=== PATIENT | male | born 1960 | race Caucasian/White ===

== ENCOUNTER 2020-02-05 11:50 | Emergency (ER) | payer OTHER, MEDICAID, SELFPAY ==
[2020-02-05 11:50] VITALS: BP 117/96; PULSE 108; RESP 15; TEMP 36.9; O2SAT 96; BMI 26.3
--- NOTE | 2020-02-05 12:10 | ED_ITS ---
HPI - URI/Sore Throat <SARA Edmond-BC - Last Filed: 02/05/20 15:46> General Chief Complaint: Upper Respiratory Symptoms Stated Complaint: Cough/Runny Nose/ Shivers Time Seen by Provider: 02/05/20 11:52 Source: patient Mode of arrival: Ambulatory Limitations: no limitations History of Present Illness HPI Narrative: The patient is a 59-year-old male non drug user with history of pneumonia who presents for chief complaint of a cough over the past few days. He also complains of runny nose. States he is coughing up sputum of different colors. He denies any fevers but complains of chills and muscle aches. He denies any abdominal pain, nausea vomiting or diarrhea. He complains of slight sore throat, no ear pain. He states he gets pneumonia every year in this feels consistent. He has not taken anything to feel better as he does not like to ?take medications. 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 Related Data Home Medications Medication Instructions Recorded Confirmed omeprazole 20 mg PO QDAY #0 10/21/16 Previous Rx's Medication Instructions Recorded azithromycin [Zithromax] 250 mg PO SEE INSTRUCTIONS #6 tab 12/07/17 loratadine [Claritin] 10 mg PO QDAY #30 tab 12/07/17 Allergies Allergy/AdvReac Type Severity Reaction Status Date / Time Penicillins [PENICILLINS] Allergy Unknown Verified 02/05/20 11:56 BEE STINGS Allergy Unknown Uncoded 02/27/18 13:00 Review of Systems <MITCH Edmond - Last Filed: 02/05/20 15:46> Review of Systems Narrative: GENERAL: See HPI HEENT: Denies sinus pain, ear pain, sore throat, difficulty swallowing, dizziness. RESPIRATORY: See HPI CARDIOVASCULAR: Denies chest pain, palpitations, orthopnea, edema, GASTROINTESTINAL: Denies nausea, vomiting, abdominal pain, diarrhea, constipation, melena. : Denies dysuria, frequency, incontinence, hematuria, urinary retention. MUSCULOSKELETAL: denies weakness, joint pain, or bony pain SKIN: Denies rash, skin lesions, or other NEUROLOGIC: Denies weakness, headache, numbness, change in speech, confusion, seizures, incoordination. PSYCHIATRIC: No concerning psychosocial issues. 12 point review of systems is negative except for those stated above Patient History <Samia MckeonZHANG - Last Filed: 02/05/20 15:46> Social History Smoking Status: Unknown if ever smoked Smoking Status: Unknown if ever smoked alcohol intake frequency: holidays/special occasions only Substance Use Type: does not use Exam <Samia MckeonZHANG - Last Filed: 02/05/20 15:46> Narrative Exam Narrative: GENERAL: This is a well-nourished, well-developed patient, in no acute distress HEAD: Atraumatic. Normocephalic. No temporal or scalp tenderness. EYES: Pupils equal round and reactive. Extraocular motions intact. No scleral icterus. No injection or drainage. ENT: Nose without bleeding, purulent drainage or septal hematoma. Throat without erythema, tonsillar hypertrophy or exudate. Uvula midline. Airway patent. NECK: Trachea midline. No JVD or lymphadenopathy. Supple, nontender, no meningeal signs. CARDIOVASCULAR: Regular rate and rhythm without murmurs, gallops, or rubs. RESPIRATORY: Clear to auscultation. Breath sounds equal bilaterally. No wheezes, rales, or rhonchi. No cough. No increased respiratory effort. No accessory muscle use. GASTROINTESTINAL: Abdomen soft, non-tender, nondistended. No hepato- splenomegaly, or palpable masses. No guarding. EXTREMITIES: No clubbing, cyanosis, or edema. No joint tenderness, effusion, or edema noted. BACK: Nontender without deformity or crepitance. No flank tenderness. NEURO: AOx3. SKIN: No rash or erythema on visible skin Initial Vital Signs Initial Vital Signs: Vital Signs Temperature 98.5 F 02/05/20 11:50 Pulse Rate 108 H 02/05/20 11:50 Respiratory Rate 15 02/05/20 11:50 Blood Pressure 117/96 H 02/05/20 11:50 Pulse Oximetry 96 02/05/20 11:50 <Desmond Vicente DO - Last Filed: 02/05/20 16:40> Initial Vital Signs Initial Vital Signs: Vital Signs Temperature 98.5 F 02/05/20 11:50 Pulse Rate 108 H 02/05/20 11:50 Respiratory Rate 15 02/05/20 11:50 Blood Pressure 117/96 H 02/05/20 11:50 Pulse Oximetry 96 02/05/20 11:50 Course <Samia MITCH Mckeon - Last Filed: 02/05/20 15:46> Orders Ordered: ED Orders 02/05/20 12:15 Respiratory Panel (Film Array) Stat Vital Signs Vital signs: Vital Signs - 8 hr 02/05/20 11:50 Temperature 98.5 F Pulse Rate 108 H Respiratory Rate 15 Blood Pressure 117/96 H Pulse Oximetry 96 <Desmond Vicente DO - Last Filed: 02/05/20 16:40> Orders Ordered: ED Orders 02/05/20 12:15 Respiratory Panel (Film Array) Stat Vital Signs Vital signs: Vital Signs - 8 hr 02/05/20 11:50 Temperature 98.5 F Pulse Rate 108 H Respiratory Rate 15 Blood Pressure 117/96 H Pulse Oximetry 96 MDM - URI/Sore Throat <MITCH Edmond - Last Filed: 02/05/20 15:46> Lab Data Labs: Lab Results 02/05/20 Range/Units 12:15 Chlamy pneumoniae PCR Not detected (Not Detect) Adenovirus (PCR) Not detected (Not Detect) B.parapertussis DNA PCR Not detected (Not Detect) Coronavirus OC43 (PCR) Not detected (Not Detect) Coronavirus HKU1 (PCR) Not detected (Not Detect) Coronavirus 229E (PCR) Not detected (Not Detect) Coronavirus NL63 (PCR) Not detected (Not Detect) Human Metapneumovir PCR Not detected (Not Detect) Influenza Type A (PCR) Not detected (Not Detect) Influenza Type B (PCR) Detected H (Not Detect) M. 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 Given that the patient does work in [employer], he is at high risk. Given his symptoms and risk factors, I agreed to tested for rea virus. Patient does state understanding that he is supposed to self cord teen, act as though he is sick until and test result which she states will take about a week. He also is okay with having a respiratory panel done. He declines a chest x-ray and declines any medications. I discussed at length the importance of following up with primary care provider, self quarantine eating until results come back. Encouraged hand hygiene and covering of cough. Patient has no questions or concerns upon discharge and states understanding of return precautions as well as follow-up care. After the patient was discharged, called and spoke with him regarding his positive influenza B. reinforced quarantined, washing hands etcetera. Patient appreciative of call, has no questions or concerns. <Desmond Vicente, - Last Filed: 02/05/20 16:40> Lab Data Labs: Lab Results 02/05/20 Range/Units 12:15 Chlamy pneumoniae PCR Not detected (Not Detect) Adenovirus (PCR) Not detected (Not Detect) B.parapertussis DNA PCR Not detected (Not Detect) Coronavirus OC43 (PCR) Not detected (Not Detect) Coronavirus HKU1 (PCR) Not detected (Not Detect) Coronavirus 229E (PCR) Not detected (Not Detect) Coronavirus NL63 (PCR) Not detected (Not Detect) Human Metapneumovir PCR Not detected (Not Detect) Influenza Type A (PCR) Not detected (Not Detect) Influenza Type B (PCR) Detected H (Not Detect) M. pneumoniae (PCR) Not detected (Not Detect) Parainfluenza 1 (PCR) Not detected (Not Detect) Parainfluenza 2 (PCR) Not detected (Not Detect) Parainfluenza 3 (PCR) Not detected (Not Detect) Parainfluenza 4 (PCR) Not detected (Not Detect) RSV (PCR) Not detected (Not Detect) Entero/Rhino (PCR) Not detected (Not Detect) Discharge Plan Departure Patient Disposition: Home Clinical Impression: Cough Upper respiratory infection Qualifiers: URI type: unspecified viral URI Qualified Code(s): J06.9 - Acute upper respiratory infection, unspecified Discharge Date/Time: 02/05/20 12:48 Instructions: DI for Cough -- Adult, DI for Viral Upper Respiratory Infection -- Adult Activity Restrictions/Additional Instructions: Thank you for trusting us with your care today. We have a respiratory panel pending. I will call you at [phone] when these results come back. The CoVid19 testing takes approximately one week to come back. We will call you when these results come in. Until then, please act as though your sick and self quarantine. Please wash your hands, cover your cough and stay home. Please come back to the emergency department for any acute concerns such as significant shortness of breath, chest pain, concerns of heart attack stroke etcetera Prescriptions: No Action omeprazole 20 MG capsule,delayed release(DR/EC) 20 mg PO QDAY Qty: 0 RF: 0 azithromycin [Zithromax] 250 MG tablet 250 mg PO SEE INSTRUCTIONS Qty: 6 RF: 0 loratadine [Claritin] 10 MG tablet 10 mg PO QDAY Qty: 30 RF: 0 Referrals: Lg Grimaldo [Primary Care Provider] - Stand Alone Forms: Work Release Note ED Sign-out <ZHANG Edmond - Last Filed: 02/05/20 15:46> Cosign ED Attending Consuelo Attestation: I was immediately available in the department for consultation. This documentation has been reviewed and I agree with assessment and plan. Supervised by ZHANG Edmond <Desmond Vicente DO - Last Filed: 02/05/20 16:40> Cosign ED Attending Consuelo Attestation: Dr Vicente Co-Sign Statement: I was available for consultation during this patient's emergency department visit. This chart is signed by myself for administrative purposes only. I did not have direct contact with this patient during this visit. They were seen independently by the APC.
[2020-02-05 15:20] LABS: Adenovirus Not Detected (Not Detect); Coronavirus 229E Not Detected (Not Detect); Coronavirus HKU1 Not Detected (Not Detect); Coronavirus NL 63 Not Detected (Not Detect); Coronavirus OC43 Not Detected (Not Detect); Human Metapneumovirus Not Detected (Not Detect); Human Rhinovirus/Enterovirus Not Detected (Not Detect); Influenza A Not Detected (Not Detect); Influenza B Detected (Not Detect); Parainfluenza Virus 1 Not Detected (Not Detect); Parainfluenza Virus 2 Not Detected (Not Detect); Parainfluenza Virus 3 Not Detected (Not Detect); Parainfluenza Virus 4 Not Detected (Not Detect); Respiratory Syncytial Virus Not Detected (Not Detect)
[2020-02-05 15:21] LABS: Bordetella pertussis Not Detected (Not Detect); Chlamydophila pneumoniae Not Detected (Not Detect); Mycoplasma pneumoniae Not Detected (Not Detect)
[2020-02-07 15:54] LABS: COVID19 Sendout Not Detected (Not Detected)
== END 2020-02-05 12:48 | disposition home or self-care (01) ==
PROVIDERS: Emergency Provider Nurse Practitioner Family; PCP Student in an Organized Health Care Education/Training Program
DX: R05 Cough (principal); R60.9 Edema, unspecified
CPT/HCPCS: 87633; 99281; 99282

== ENCOUNTER 2025-10-24 11:18 | Emergency (ER) | payer OTHER, MEDICAID, SELFPAY ==
[2025-10-24] VITALS (7 sets, daily range): BP systolic 123–152; BP diastolic 72–84; PULSE 74–83; RESP 11–20; O2SAT 96–99; BMI 25.0
--- NOTE | 2025-10-24 11:37 | EKG_ITS ---
[address] [address] [address] [address] Test Date: 2025-10-24 Pat Name: Ray Edwards Department: Room: Gender: Male Director Of Informatics: JAMEL : 1960 Requested By: Order Number: [id number] Reading MD: Tacho Hanna Measurements Intervals [place] Rate: 79 P: 29 MI: 140 QRS: 47 QRSD: 80 T: 52 QT: 384 QTc: 440 Interpretive Statements Normal sinus rhythm Electronically Signed On 10-24-2025 14:41:16 PST by Tacho Hanna
--- NOTE | 2025-10-24 11:37 | DI.RAD.S_ITS ---
PROCEDURE: XR CHEST 1V INDICATIONS: Chest Pain TECHNIQUE: One view of the chest was acquired. COMPARISON: [facility], , CHEST 2 VIEW, 12/07/2017, 8:53. FINDINGS: Surgical changes and devices: None. Lungs and pleura: Lungs are clear. No pleural effusions or pneumothorax. Mediastinum: Mediastinal contours appear normal. Heart size is normal. Bones and chest wall: No suspicious bony lesions. Overlying soft tissues appear unremarkable. IMPRESSION: No acute pulmonary process. Dictated by: Chandrika Wu M.D. on 10/24/2025 at 12:08 Approved by: Chandrika Wu M.D. on 10/24/2025 at 12:08
--- NOTE | 2025-10-24 11:53 | ED.CHESTPAIN ---
HPI - Chest Pain General Chief Complaint: Chest Pain Stated Complaint: Profuse sweating, lump mid-chest, vomitting Time Seen by Provider: 10/24/25 12:11 Source: patient Mode of arrival: Ambulatory Limitations: no limitations History of Present Illness HPI narrative: This is a 64-year-old white male who presents with several days of substernal chest pain described as pressure and burning it is nonradiating accompanied by nausea and diaphoresis. There is no cough hemoptysis shortness of breath. Patient states she does have a history of GERD. Patient states the pain is not provoked intermittent and self-limited. Related Data Home Medications ?Medication ?Instructions ?Recorded ?Confirmed omeprazole 20 mg capsule,delayed 20 mg PO QDAY ##0 10/21/16 release Previous Rx's ?Medication ?Instructions ?Recorded azithromycin 250 mg tablet 250 mg PO SEE INSTRUCTIONS #6 tabs 12/07/17 (Zithromax) loratadine 10 mg tablet (Claritin) 10 mg PO QDAY #30 tabs 12/07/17 prochlorperazine maleate 10 mg 10 mg PO TID PRN nausea and 10/24/25 tablet vomiting #14 tabs Allergies Allergy/AdvReac Type Severity Reaction Status Date / Time Penicillins (PENICILLINS) Allergy Unknown Verified 02/05/20 11:56 Iodinated Contrast Media AdvReac Vomiting Verified 10/24/25 12:36 BEE STINGS Allergy Unknown Uncoded 02/27/18 13:00 Review of Systems Review of Systems Narrative: GENERAL: Denies chills, fatigue, malaise, fever, sweats. HEENT: Denies sinus pain, ear pain, sore throat, difficulty swallowing, dizziness. RESPIRATORY: Denies dyspnea, cough, wheezing, hemoptysis, sputum. CARDIOVASCULAR: See HPI GASTROINTESTINAL: See HPI : Denies dysuria, frequency, incontinence, hematuria, urinary retention. MUSCULOSKELETAL: denies weakness, joint pain, or bony pain SKIN: Denies rash, skin lesions, or other NEUROLOGIC: Denies weakness, headache, numbness, change in speech, confusion, seizures, incoordination. PSYCHIATRIC: No concerning psychosocial issues. 12 point review of systems is negative except for those stated above Patient History Social History Smoking Status: Never smoker Smoking Status: Never smoker alcohol intake frequency: holidays/special occasions only Exam Narrative Exam Narrative: GENERAL: [] year old patient appears stated age. Well-developed patient, in mild distress. HEAD: Atraumatic. Normocephalic. EYES: Pupils equal round and reactive. Extraocular motions intact. No scleral icterus. No injection or drainage. ENT: Nose without bleeding, purulent drainage. Throat without erythema, tonsillar hypertrophy or exudate. Airway patent. NECK: Trachea midline. Non tender CARDIOVASCULAR: Regular rate and rhythm without murmurs, gallops, or rubs. RESPIRATORY: Clear to auscultation. Breath sounds equal bilaterally. No wheezes, rales, or rhonchi. GASTROINTESTINAL: Abdomen soft, with epigastric tenderness no guarding or rebound, nondistended. EXTREMITIES: No edema or joint tenderness. BACK: Nontender without deformity or crepitance. No flank tenderness. NEURO: AOx3. SKIN: No rash or erythema of visible areas Initial Vital Signs Initial Vital Signs: Vital Signs Pulse Rate 80 10/24/25 11:30 Respiratory Rate 20 10/24/25 11:30 Blood Pressure 129/72 10/24/25 11:30 Pulse Oximetry 98 10/24/25 11:30 Oxygen Delivery Method Room Air 10/24/25 11:30 Course Orders Ordered: ED Orders 10/24/25 11:37 XR chest 1V Stat EKG-12 Lead Stat 10/24/25 11:46 Comprehensive Metabolic Panel Stat Lipase Stat Magnesium Stat NT-proBNP (BNP-Adult 18+) Stat PTT Partial Thromboplastin Ger Stat Prothrombin Time INR Stat Troponin & CK Cardiac Panel Stat 10/24/25 11:51 Consult to NEON SIGN ERECTOR - Pressroom Foreman Stat 10/24/25 12:09 Complete Blood Count AUTO DIFF Stat 10/24/25 12:15 CT abdomen pelvis w con Stat Discontinued Medications Al Hydrox/Mg Hydrox/Simethicone (Mag Hydrox/Alum/Simeth 30 Ml Udc) 30 ml PO NOW ONE Stop: 10/24/25 12:11 Aspirin (Aspirin 81 Mg Chew Tab) 324 mg PO NOW ONE Stop: 10/24/25 11:38 Last Admin: 10/24/25 11:56 Dose: Not Given Documented By: RENEA Lidocaine HCl (Lidocaine Viscous 2% 15 Ml Solution) 15 ml PO NOW ONE Stop: 10/24/25 12:11 Ondansetron HCl (Ondansetron 4 Mg/2 Ml Inj) 4 mg IV NOW ONE Stop: 10/24/25 12:09 Last Admin: 12/06/25 12:58 Dose: Not Given Vital Signs Vital signs: Vital Signs - 8 hr 10/24/25 11:30 Pulse Rate 80 Respiratory Rate 20 Blood Pressure 129/72 Pulse Oximetry 98 Oxygen Delivery Method Room Air MDM - Chest Pain Lab Data 10/24/25 12:09 10/24/25 11:46 Labs: Lab Results 10/24/25 10/24/25 Range/Units 11:46 12:09 WBC 8.1 (4.5-11.0) X10^3/uL RBC 4.59 (4.5-5.9) X10^6/uL Hgb 14.1 (13.5-17.5) g/dL Hct 41.7 (41-53) % MCV 91.0 (80-100) fL MCH 30.6 (26-34) PG MCHC 33.7 (30-36) % RDW 14.0 (11.6-14.8) % Plt Count 254 (150-400) X10^3/uL Neut % (Auto) 83.9 H (50-75) % Lymph % (Auto) 9.1 L (25-40) % Burnett % (Auto) 6.1 (3-14) % Eos % (Auto) 0.3 L (2-4) % Baso % (Auto) 0.6 (0-2) % Neut # (Auto) 6800 (9921-6070) /uL Lymph # (Auto) 700 L (2972-3264) /uL Burnett # (Auto) 500 (0-900) /uL Eos # (Auto) 0 (0-450) /uL Baso # (Auto) 0 (0-100) /uL PT 10.7 (9.4-12.5) SECONDS INR 0.9 (0.9-1.3) APTT 31 (25.1-36.5) SECONDS Sodium 136 L (137-145) mmol/L Potassium 4.0 (3.4-5.1) mmol/L Chloride 106 (98-107) mmol/L Carbon Dioxide 20 L (22-32) mmol/L BUN 20 (9-20) mg/dL Creatinine 1.04 (0.66-1.25) mg/dL Estimated GFR > 60 (>60) mL/min BUN/Creatinine Ratio 19.2 (6-22) Glucose 137 H (70-99) mg/dL Calcium 8.7 (8.4-10.2) mg/dL Magnesium 2.1 (1.6-2.3) mg/dL Total Bilirubin 1.3 (0.2-1.3) mg/dL AST 31 (17-59) IU/L ALT 19 (<50) IU/L Alkaline Phosphatase 91 (38-126) U/L Total Creatine Kinase 143 (55-170) U/L Troponin I < 0.012 (0.01-0.034) ng/mL NT-Pro-B Natriuret Pep 97 (<125) pg/mL Total Protein 8.1 (6.3-8.2) g/dL Albumin 4.5 (3.5-5.0) g/dL Globulin 3.6 (1.7-4.1) g/dL Albumin/Globulin Ratio 1.3 (1.0-2.8) Lipase 673 H (23-300) U/L [facility] Narrative Medical decision making narrative: The patient had a 12 lead EKG reveals sinus rhythm 79 beats per minute normal axis no blocks no acute changes. Patient had chest x-ray read by the radiologist as negative patient's CT abdomen pelvis read by the radiologist as hiatal hernia with mild distal wall thickening consistent with esophagitis. Patient is a CBC with normals chemistry within normal limits troponin BNP were negative lipase was elevated at 673. In the emergency room patient was given IV hydration with fluids patient was also given IV Zofran and a GI cocktail. At this point it would appear that the patient's chest pain is due to esophagitis patient is already on a proton pump inhibitor. I will add a more potent antiemetic for him advised to clinic was 24 hours then needs to be follow up by GI specialist. Differential diagnosis is esophagitis gastritis pancreatitis angina Discharge Plan Departure Patient Disposition: Home Clinical Impression: Abdominal pain, acute, epigastric, Atypical chest pain Instructions: DI for Abdominal Pain-Adult, DI for Atypical Chest Pain Prescriptions: New prochlorperazine maleate 10 mg tablet 10 mg PO TID PRN (Reason: nausea and vomiting) Qty: 14 0RF No Action omeprazole 20 MG capsule,delayed release(DR/EC) 20 mg PO QDAY Qty: 0 azithromycin [Zithromax] 250 MG tablet 250 mg PO SEE INSTRUCTIONS Qty: 6 0RF loratadine [Claritin] 10 MG tablet 10 mg PO QDAY Qty: 30 0RF Referrals: Lg Grimaldo DO [Primary Care Provider, Medical] Stand Alone Forms: Patient Portal/API
[2025-10-24 12:04] LABS: INR 0.9 (0.9-1.3); Prothrombin Time 10.7 SECONDS (9.4-12.5)
[2025-10-24 12:07] LABS: PTT Partial Thromboplastin Tim 31 SECONDS (25.1-36.5)
[2025-10-24 12:11] LABS: Alanine Aminotransferase 19 IU/L (<50); Albumin 4.5 g/dL (3.5-5.0); Albumin Globulin Ratio 1.3 (1.0-2.8); Alkaline Phosphatase 91 U/L (38-126); Blood Urea Nitrogen 20 mg/dL (9-20); Calcium 8.7 mg/dL (8.4-10.2); Carbon Dioxide 20 mmol/L (22-32); Chloride 106 mmol/L (98-107); Creatine Kinase 143 U/L (55-170); Estimated Glomerular Filt Rate > 60 mL/min (>60); Globulin 3.6 g/dL (1.7-4.1); Glucose 137 mg/dL (70-99); HEMOLYSIS 47 (0-50); Lipase 673 U/L (23-300); Magnesium 2.1 mg/dL (1.6-2.3); Potassium 4.0 mmol/L (3.4-5.1); Sodium 136 mmol/L (137-145); Total Protein 8.1 g/dL (6.3-8.2)
[2025-10-24 12:13] LABS: Add Manual Diff / Slide Review NO; Hematocrit 41.7 % (41-53); Hemoglobin 14.1 g/dL (13.5-17.5); Lymphocytes Absolute Auto 700 /uL (1100-4500); Mean Corpuscular HGB Conc 33.7 % (30-36); Mean Corpuscular Hemoglobin 30.6 PG (26-34); Mean Corpuscular Volume 91.0 fL (80-100); Platelet Count 254 X10^3/uL (150-400)
--- NOTE | 2025-10-24 12:15 | DI.CT.S_ITS ---
PROCEDURE: CT ABDOMEN PELVIS W CON INDICATIONS: epigastric pain TECHNIQUE: After the administration of intravenous contrast, axial sections acquired from the lung bases to the pubic symphysis. Coronal and sagittal reformats were performed. For radiation dose reduction, the following was used: automated exposure control, adjustment of mA and/or kV according to patient size. COMPARISON: [facility], CT, CT ABDOMEN PELVIS WITH CONTRAST, 10/13/2024, 16:47. FINDINGS: Image quality: Diagnostic. Lower Chest: No significant findings. ABDOMEN: Liver: No solid mass. Steatosis. Gallbladder: No radiopaque gallstones or wall thickening. Biliary ducts: No biliary dilation. Pancreas: No ductal dilation. Spleen: Size is within normal limits. Adrenal Glands: No adrenal nodules. Kidneys and Ureters: No hydronephrosis. Scattered low-attenuation foci. Nonobstructing 4 mm left renal calculus. Asymmetric right renal atrophy similar compared to prior exam. Stomach and Bowel: Normal colonic caliber, without significant wall thickening. Hiatal hernia with distal esophageal thickening. Diverticula without associated inflammatory change. Peritoneum: No abnormal intraperitoneal fluid. No free air. Ventral Wall: No significant ventral hernia. Abdominal Nodes: No retroperitoneal or mesenteric adenopathy by size criteria. Vessels: Aorta and inferior vena cava are normal in size. PELVIS: Pelvic Organs: Unremarkable. Bladder: No bladder wall thickening, accounting for underdistention. Pelvic Nodes: No enlarged lymph nodes. Miscellaneous: No inguinal hernias are seen. Bones: No aggressive osseous abnormality. IMPRESSION: Hiatal hernia with mild distal esophageal thickening, unchanged. The latter could be reflective of esophagitis. Clinical correlation follow-up is recommended as indicated. Diverticulosis. Nonobstructing left renal calculus. Hepatic steatosis. Dictated by: Chandrika Wu M.D. on 10/24/2025 at 12:42 Approved by: Chandrika Wu M.D. on 10/24/2025 at 12:44
[2025-10-24 12:22] LABS: NT-proBNP (BNP-Adult 18+) 97 pg/mL (<125); Troponin I < 0.012 ng/mL (0.01-0.034)
--- NOTE | 2025-10-24 13:13 | CM.SWNOTE ---
ED MANAGER HOUSE Note MANAGER HOUSE receives consult, patient declines to meet with MANAGER HOUSE with cornetist, MANAGER HOUSE enters room upon patient's discharge and patient denies need to meet with MANAGER HOUSE. MANAGER HOUSE provides patient with housing and basic needs resources upon d/c. Patient discharged upon medical clearance. Jaimie Bethea, RECOVERY RN
== END 2025-10-24 13:13 | disposition home or self-care (01) ==
PROVIDERS: Emergency Provider Emergency Medicine; PCP Student in an Organized Health Care Education/Training Program
DX: R07.89 Other chest pain (principal); R10.13 Epigastric pain; K21.9 Gastro-esophageal reflux disease without esophagitis
CPT/HCPCS: 36415; 71045; 74177; 80053; 82550; 83690; 83735; 83880; 84484; 85025; 85610; 85730; 93005; 99284; Q9967